=== PATIENT | male | born 2005 | race Caucasian/White ===

== ENCOUNTER 2024-01-10 02:50 | Emergency (ER) | payer SELFPAY ==
[2024-01-10] MEDS ORDERED: Boostrix 0.5 ML (Tdap) VIAL (>/=7 yrs of age) ONE (03:00)
[2024-01-10] MEDS ORDERED: Ondansetron PF 4 MG/2 ML Vial ONE (03:21)
[2024-01-10] MEDS ORDERED: LORazepam 2 MG/ML SYR.(CARPUJECT) ONE (03:21)
== END 2024-01-10 05:30 | disposition home or self-care (01) ==
LOC: ERS 02:50
DX: S02.2XXA Fracture of nasal bones, initial encounter for closed fracture (principal); S09.90XA Unspecified injury of head, initial encounter; F10.129 Alcohol abuse with intoxication, unspecified; Z55.6 Problems related to health literacy; Z23 Encounter for immunization; Y04.0XXA Assault by unarmed brawl or fight, initial encounter
CPT/HCPCS: 12011; 70450; 70486; 72125; 90471; 90715; J2060; J2405